=== PATIENT | male | born 1940 | race Caucasian/White ===

== ENCOUNTER 2019-06-17 22:05 | Observation (INO) | payer MEDICARE ==
[~2019-06-17] VITALS: Ht 162.6 cm; Wt 55.0 kg
[~2019-06-17 22:05] MED LIST: DILT180C2 PO; ESCI10TA10 PO; HYDR-3194 PO; LISI-410 PO; MEMA10TA PO; NEBI10TA3 PO; NPH,100V SQ; RISP0.2518 PO; SENN-83 PO
--- NOTE | 2019-06-17 23:00 | NUR ---
ARRIVAL: PT ARRIVED ON UNIT IN WHEELCHAIR. ASSUMED PT CARE. PT IS ALERT AND ORIENTED X1. PT SEATED IN WHEELCHAIR AND VERY AGITATED. PT REFUSING TO COME OUT OF WHEELCHAIR. PT REPORTED "I DON'T WANT TO BE HERE. I NEED TO GO TO [facility]". PT RE-DIRECTED SEVERAL TIMES. WILL CONTINUE TO MONITOR.
[2019-06-17 23:30] VITALS: BP 195/75
--- NOTE | 2019-06-18 00:05 | NUR ---
PT STATUS: PT AGREED TO GET INTO BED. PT ASSISTED INTO BED AND PLACED IN HOSPITAL GOWN. WILL CONTINUE TO MONITOR.
[2019-06-18] MEDS ORDERED: DOCU-123 PO (00:49)
[2019-06-18] MEDS ORDERED: GLUC1CAP41 PO (00:49)
[2019-06-18] MEDS ORDERED: SENN-83 PO (00:58)
[2019-06-18] MEDS ORDERED: ACET500T73 PO (00:59)
--- NOTE | 2019-06-18 01:02 | NUR ---
TELEMETRY: PT AGREED TO BE PLACED ON TELEMETRY MONITORING AFTER DISCUSSION WITH THIS NURSE. BED IN LOW POSITION, LOCKED, HOB ELEVATED, SIDE RAILS UP X2 AND BED ALARM ON. CALL LIGHT AND TABLE WITHIN REACH. WILL CONTINUE TO MONITOR.
--- NOTE | 2019-06-18 01:16 | NUR ---
URINAL: PT REQUESTED FOR URINAL. PT VOIDED 100ML OF STRONG SMELLING KUSUM URINE. PER PT REPORT "IT BOLDEN A LITTLE"
[2019-06-18] MEDS: BYSTOLIC PO SCH ×3 (01:30→20:25)
[2019-06-18] MEDS: APRESOLINE PO SCH ×4 (01:30→20:25)
[2019-06-18 03:47] VITALS: BP 203/73
[2019-06-18] MEDS ORDERED: LASIX ONE (04:07)
[2019-06-18] MEDS ORDERED: LASIX PO STA (04:09)
--- NOTE | 2019-06-18 04:10 | NUR ---
ELEVATED BP OF 203/73 NOTED USING AUTOMATIC BP CUFF. MANUAL BP TAKEN AND NOTED TO BE 202/78. DR AGUIAR NOTIFIED. TELEPHONE ORDER GIVEN TO ADMIN LASIX 40MG 1 TAB PO NOW. TELEPHONE ORDER RBAV
[2019-06-18 08:04] VITALS: BP 194/75
[2019-06-18] MEDS ORDERED: HUMULIN N SQ ONE (08:30)
[2019-06-18] MEDS ORDERED: LANTUS SQ SCH (09:00)
[2019-06-18 11:14] VITALS: BP 198/84
--- NOTE | 2019-06-18 12:35 | HPH ---
ADMIT DATE: 06/17/2019 HISTORY OF PRESENT ILLNESS: The patient was brought to our hospital after being discharged from [facility] due to some abnormal labs and minor abnormalities in his vital signs. They are requesting medical clearance prior to assessment of his mental status. He has been reporting to have increasing aggression on top of his longstanding dementia, hypertension. REVIEW OF SYSTEMS: He denies any chest pain, shortness of breath or pain in general. He does not exert himself much, so it is hard to really gaze whether he has shortness of breath. In general, he is a poor historian and cannot elaborate on review of systems. FAMILY HISTORY: Cannot be obtained. SOCIAL HISTORY: Cannot be obtained. PAST SURGICAL HISTORY: Cannot be obtained. PAST MEDICAL HISTORY: 1. Dementia. 2. Hypertension. 3. History of left rib fractures. 4. Atherosclerosis of the aorta based on chest x-ray. 5. Constipation. MEDICATIONS: 1. Cardizem 60 mg twice a day. 2. Lexapro 10 mg once a day. 3. Hydralazine 25 mg t.i.d. 4. Lisinopril 20 mg b.i.d. 5. Namenda 5 mg once a day. 6. Bystolic 10 mg twice a day. 7. Risperdal 0.25 mg once a day. 8. Senna and Colace daily. 9. Ativan and hydrocodone and Tylenol as needed. Data reviewed. LABORATORY DATA: His labs are significant for an A1c of 8.1. Some mild urine proteinuria, positive opiates in his drug screen. A BNP of 521, negative troponin and a creatinine of 0.7. PHYSICAL EXAMINATION: VITAL SIGNS: His oxygen was 90% on room air with a max of 94% on room air. Blood pressure is 203/73, respirations 18, pulse 49, temperature 97.9. GENERAL: He is alert, but oriented only to person. He is lying in bed in no acute distress. HEENT: His sclerae anicteric. NECK: He has good tracking during the conversation. CARDIOVASCULAR: Slow heart rate with a regular rhythm. RESPIRATORY: Clear to auscultation bilaterally with very good inspiratory effort. ABDOMEN: Soft, nontender, nondistended. EXTREMITIES: Without edema or cyanosis. MUSCULOSKELETAL: He is rather bony with reduced muscle mass throughout. NEUROLOGIC: He clearly has reduced memory and grossly reduced cognition. At times, noncooperative, but no violent behavior is observed during my assessment. ASSESSMENT: 1. Confusion worse from baseline in the setting of dementia. 2. Hypoxia. 3. Elevated BNP. 4. Multiple cardiac risk factors. PLAN: 1. Place on telemetry for approximately 24 hours. 2. Get an echo and a 12-lead EKG. 3. He has had some macrocytosis on labs from his senior care, so I will start some B12. 4. Reinstitute his home medications as tolerated. I have discussed these with his nurse aide. Keyonna Schneider MD DR: CLARITZA/daisy JOB# [id number]
--- NOTE | 2019-06-18 15:10 | NUR ---
behavior: pt is agitated and states that he wants to go to his home. pt has been combative to the staff several times during the day staff has been attempting to redirect pt. pt has been decisional stating that there is people in the room that are not there and yelling for his family. pt is looking for money and a gun that he is stating that the staff has took from him. will continue to monitor pt.
[2019-06-18 15:24] VITALS: BP 150/69
--- NOTE | 2019-06-18 16:03 | NUR ---
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 PT WAS INITIAL BROUGHT IN FOR MEDICAL CLEARANCE FOR THE U. PT IS INVOLUNTARY AND ON COURT PAPERS. PT WAS MOVED TO THE MEDICAL FLOOR FOR FURTHER MANAGEMENT. ONCE PT IS MEDICALLY CLEARED AND STABLE GOAL IS FOR PT TO RETURN TO U FOR FURTHER PSYCHIATRIC MANAGEMENT. SW TO CONTINUE TO FOLLOW AND MONITOR DISCHARGE PLANNING NEEDS. NO FURTHER NEEDS NOTED OR IDENTIFIED AT THIS TIME.
[2019-06-18] MEDS ORDERED: LANTUS SQ STA (17:07)
--- NOTE | 2019-06-18 18:30 | NUR ---
REPORT RECEIVED REPORT FROM SARWAT SMITH. ASSUMED CARE. PATIENT SITTING IN CHAIR, RESTLESS AND TRYING TO GET UP. HE THINKS HE IS AT HOME. PATIENT ORIENTED TO PERSON ONLY. PATIENT IS 1:1 CARE.
[2019-06-18 19:04] VITALS: BP 165/89
[2019-06-18] MEDS ORDERED: ATIVAN PO STA (19:37)
--- NOTE | 2019-06-18 20:56 | NUR ---
UPDATE REPORTED BLOOD GLUCOSE LEVEL OF 447. RECEIVED ORDER FOR GLIPIZIDE 5MG PO X1 AND SCHEDULED DOSE GLIPIZIDE 5 MG PO DAILY BEGINNING 06/20/2019 AM.
[2019-06-18] MEDS ORDERED: RISPERDAL PO SCH (21:00)
[2019-06-18] MEDS ORDERED: GLUCOTROL PO STA (21:40)
[2019-06-19] MEDS ORDERED: ATIVAN ONE (00:13)
[2019-06-19 00:24] VITALS: BP 183/68
[2019-06-19 01:42] VITALS: BP 190/85
--- NOTE | 2019-06-19 03:25 | NUR ---
up to bedside toilet incontinent of urine hannah care given , with complete linen change patient tolerated well.
[2019-06-19 04:43] VITALS: BP 180/80
--- NOTE | 2019-06-19 06:30 | NUR ---
REPORT RECEIVED REPORT FROM AUGIE WEBB. ASSUMED CARE AT THIS TIME.
[2019-06-19 08:07] VITALS: BP 200/90
[2019-06-19] MEDS ORDERED: CATAPRES-TTS 1 TD STA (08:26)
--- NOTE | 2019-06-19 08:30 | NUR ---
ELEVATED BP PATIENT BP 200/90 TAKEN WITH MANUAL BP CUFF. DR AGUIAR NOTIFIED.
[2019-06-19] MEDS: BYSTOLIC PO SCH (08:47)
[2019-06-19] MEDS: APRESOLINE PO SCH ×2 (08:47→14:12)
[2019-06-19] MEDS ORDERED: LANTUS SQ SCH (09:00)
[2019-06-19] MEDS ORDERED: GLUCOTROL PO SCH (09:00)
--- NOTE | 2019-06-19 09:53 | PRM.PN ---
Subjective Events since last encounter Did not tolerate ECHO, was too fidgety and noncooperative. Telemetry has been ok. Sugars are quite high, has been a struggle to get him to take orals. FOr some reason he was on basal insulin alone, with no mealtime coverage. BP remains high, but no symptoms observed/reported. We have not seen family to date. Objective Exam,Results,Procedures Calm but easily distracted Does not consistently follow commands.\ At times noncooperative but non-violent. Speech not always sensible Requires frequent coaxing to allow care Slow heart rate, regular rhythm Respirations even, unlabored without oxygen Assessment & Plan Provider Note: Advancing dementia - Discussed with Dr. Banuelos at [facility]. I don't think Bill would benefit from further mental health evaluation/treatment. - Hospice seems more appropriate. - Dementia unit/Memory Care unit in penitentiary setting would be most appropriate, but I'm told by our hospice case manager here that [facility] does not have that option. - Placement is pending, but most likely he will not discharge to [facility]. HTN, Severe - Add catapres patch for easier compliance Diabetes - Added low dose sulfonylurea yesterday which I'm not enthusiastic about, but since Januvia was not available. - Seems to be helping. GAVINO AGUIAR MD Jun 19, 2019 09:53
--- NOTE | 2019-06-19 12:14 | NUR ---
BLOOD GLUCOSE TOOK PT BLOOD GLUCOSE AT THIS TIME. BLOOD GLUCOSE WAS 246. DR AGUIAR NOTIFIED. ASKED DR AGUIAR IF SHE WANTED ME TO PROVIDED AN INTERVENTION. DR. AGUIAR SAID NO INTERVENTION WERE NEEDED AT THIS TIME. WILL CONTINUE TO MONITOR.
[2019-06-19 12:19] VITALS: BP 170/86
--- NOTE | 2019-06-19 13:01 | NUR ---
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 BRYCE BRAUN NOTIFIED REGARDING PLAN AND CLINICALS FAXED. PER BRYCE SHARPE DRIVER WILL BE HERE BETWEEN 2:30 AND 2:45 TO WOMEN'S STUDIES LECTURER THE PATIENT. YEU WEBB NOTIFIED OF VAN ARRIVAL TIME. DISCHARGE GOAL IS FOR PATIENT TO D/C BACK TO [facility] AND RETURN TO ROUTINE CARE THERE. NO FURTHER NEEDS NOTED AT THIS TIME.
[2019-06-19 15:00] VITALS: BP 170/86
--- NOTE | 2019-06-19 15:00 | NUR ---
DISCHARGE PATIENT DISCHARGED AT THIS TIME, NO S/S OF DISTRESS NOTED. PATIENT LEFT VIA W/C WITH EMPLOYEE FROM [facility]. NO QUESTIONS OR CONCERNS PRESENT AT THIS TIME. PATIENTS PERSONAL ITEMS WERE GIVEN TO [facility] EMPLOYEE. RELINQUISHED CARE FOR PATIENT AT THIS TIME. CALLED AND GAVE REPORT TO KUSUM SMITH AT [facility].
[2019-06-19] MEDS ORDERED: GLIP5TAB10 PO (15:22)
--- NOTE | 2019-06-19 15:27 | PRM.DC ---
Discharge Summary Date of Discharge: Jun 19, 2019 Time of Request to Discharge: 15:24 Reason for Visit: Abnormal BNP,low oxygen Hospital Course Bill did not tolerate attempts at ECHO. EKG and telemetry were unremarkable. Although BP and glucose required some management, he had no symptoms from these chronic conditions. Glipizide was added for mealtime glucose control. He was not felt to be appropriate for behavioral health admission due to primary advanced dementia. He will return to his senior living hopefully to arrange more dementia care. Scheduled Acetaminophen (Acetaminophen), 500 MG PO BID, (Reported) Diltiazem Hcl (Cardizem Cd), 60 MG PO BID, (Reported) Docusate Sodium (Colace), 200 MG PO DAILY24, (Reported) Escitalopram Oxalate (Lexapro), 1 TAB PO DAILY, (Reported) Glipizide (Glipizide), 5 MG PO DAILY Glucosa Chan 2KCL/Chondroitin Chan (Glucosamine & Chondroitin Cap), 1 EACH PO BID, (Reported) Hydralazine Hcl (Hydralazine Hcl), 1 TAB PO TID, (Reported) Lisinopril (Lisinopril), 1 TAB PO BID, (Reported) Memantine Hcl (Namenda), 5 MG PO DAILY24, (Reported) Nebivolol Hcl (Bystolic), 1 TAB PO BID, (Reported) Nph, Human Insulin Isophane (Humulin N), 10 UNIT SQ BID, (Reported) Risperidone (Risperdal), 1 TAB PO DAILY24, (Reported) Sennosides (Senna), 8.6 MG PO DAILY24, (Reported) Discontinued Medications Sennosides (Senna), 8.6 MG PO DAILY24, (Reported) Discontinued Reason: No Longer Taking Sepsis Evaluation @ Discharge 06/19/19 12:09 Course Sepsis Screening Results: Posi: NEGATIVE Sepsis Qualifier/Stage: NO DEFINITE RISK Duration or Total Time Spent w: 29 min Vitals & review Data Vital Sign - Last 24 Hours 06/18/19 06/18/19 06/18/19 06/19/19 19:04 19:09 20:25 00:21 Temp 97.9 Pulse 60 60 Resp 18 B/P (MAP) 165/89 (114) 165/89 Pulse Ox 95 O2 Delivery Room Air Room Air Room Air 06/19/19 06/19/19 06/19/19 9/6/19 00:24 01:42 04:43 08:07 Temp 98.0 97.0 97.2 Pulse 56 54 46 Resp 18 18 16 B/P (MAP) 183/68 (106) 190/85 (120) 180/80 (113) 200/90 (126) Pulse Ox 97 96 95 O2 Delivery Room Air Room Air 06/19/19 06/19/19 06/19/19 06/19/19 08:26 08:50 08:50 12:19 Temp 97.9 Pulse 46 46 50 Resp 16 B/P (MAP) 200/90 200/90 170/86 (114) Pulse Ox 95 O2 Delivery Room Air Room Air 06/19/19 14:13 Pulse 50 B/P (MAP) 170/86 Intake and Output 06/18/19 06/18/19 06/19/19 15:00 23:00 07:00 Intake Total 480 ml 840 ml Output Total 250 ml Balance 480 ml 590 ml Laboratory Tests Test 06/18/19 08:21 06/18/19 11:31 06/18/19 17:27 06/19/19 05:48 Bedside Glucose 301 353 225 Glucose Level 423 mg/dL Test 06/19/19 12:12 Bedside Glucose 246 Current Medications Medications (Trade) Dose Ordered Sig/Tyron PRN Reason Start Time Stop Time Status Last Admin Glipizide (Glucotrol) 5 mg DAILY 06/20/19 09:00 Hydralazine HCl (Apresoline) 25 mg TID 06/18/19 01:30 07/18/19 01:29 06/19/19 14:13 Insulin Glargine (Lantus) 15 unit DAILY 06/19/19 09:00 07/19/19 08:59 06/19/19 08:50 Nebivolol (Bystolic) 10 mg BID 06/18/19 01:30 07/18/19 01:29 06/19/19 08:50 Risperidone (Risperdal) 0.25 mg HS 06/18/19 21:00 07/18/19 20:59 06/18/19 20:25 Sepsis Infection Criteria Pres: None LEVEL 1 SEPSIS INFECTION CRITE: None/Not assessed LEVEL 2-SIRS (LIST ALL THAT AP: None/Not assessed O2 Sat by Pulse Oximetry: 95 GAVINO AGUIAR MD Jun 19, 2019 15:27
[2019-06-20] MEDS ORDERED: GLUCOTROL PO SCH (09:00)
== END 2019-06-19 15:50 ==
LOC: MS 22:05 → INTOOBSV 22:05 → UNDOADMOB 22:05 → INTOOBSV 23:00 → OBSVTOIN 23:00 → MS 23:00
PROVIDERS: ADMIT Internal Medicine; ATTEND Internal Medicine
DX: F03.90 Unspecified dementia, unspecified severity, without behavioral disturbance, psychotic disturbance, mood disturbance, and anxiety (principal); I70.0 Atherosclerosis of aorta; I10 Essential (primary) hypertension; R09.02 Hypoxemia; R79.89 Other specified abnormal findings of blood chemistry; Z79.899 Other long term (current) drug therapy
CPT/HCPCS: 36415; 82947; 82948 ×6; 96372 ×2; G0378 ×40; J1815